=== PATIENT | male | born 1935 | race African-American/Black ===

== ENCOUNTER 2016-10-24 18:24 | Emergency (ER) | payer MEDICARE, MEDICAID ==
[~2016-10-24] VITALS: Ht 167.6 cm; Wt 73.0 kg
[~2016-10-24 18:24] MED LIST: BUME1TAB4 PO; FLUT1DIS IH; IPRA3AMP IH; METO50TA5 PO; MONT10TA21 PO; P20 PO; TRAV2.5D EACHEYE
[2016-10-24] MEDS ORDERED: ATOR40TA70 PO (19:05)
[2016-10-24] MEDS ORDERED: WARF2TAB55 PO (19:05)
[2016-10-24] MEDS ORDERED: PANT40TA4 PO (19:05)
[2016-10-24] MEDS ORDERED: COMBIVENT (19:05)
[2016-10-24] MEDS ORDERED: DILT240C92 PO (19:05)
[2016-10-24] MEDS ORDERED: ALBUTEROL (0.083%) 2.5MG/3ML NEB HHN ONE (20:00)
[2016-10-24] MEDS ORDERED: PREDNISOLONE 15 MG/5 ML ORAL SYRINGE PO ONE (20:00)
[2016-10-24 20:15] LABS: BASOPHILS % 0.7 % (0.0-2.0); EOSINOPHILS % 3.2 % (0.0-5.0); HEMATOCRIT. 38.5 % (42.0-52.0); LYMPHOCYTES % 20.5 % (20.0-50.0); MEAN CORPUSCULAR HEMOGLOBIN 29.5 pg (28.0-32.0); MEAN CORPUSCULAR HGB CONC 33.8 g/dL (31.0-37.0); MEAN CORPUSCULAR VOLUME 87.3 fL (80.0-94.0); MEAN PLATELET VOLUME 8.8 fl (7.4-10.4); NEUTROPHILS % 62.6 % (40.0-76.0); PLATELET 169 x1000/uL (130-400); RED BLOOD CELL COUNT 4.41 mill/uL (4.7-6.1); RED CELL DISTRIBUTION WIDTH 14.7 % (11.6-14.6); WHITE BLOOD COUNT 7.4 x1000/uL (4.5-11.0)
[2016-10-24 20:22] LABS: ALBUMIN 3.7 g/dL (3.4-5.0); CALCIUM 9.4 mg/dL (8.5-10.1); CHLORIDE 108 mEq/L (98-107); INDEX HEMOLYSI 1 (1-3); INDEX ICTERIC 1 (1-4); INDEX LIPEMIC 1 (1-3); INR 2.4; PROTHROMBIN TIME 24.6 sec
[2016-10-24 20:25] LABS: ALANINE AMINOTRANSFERASE 24 IU/L (13-61); ANION GAP 16; CARBON DIOXIDE 23 mEq/L (21-32); LIPASE 131 IU/L (73-393); UREA NITROGEN BLOOD 25 mg/dL (7-21)
[2016-10-24 20:28] LABS: eGFR 55 mL/min (>60)
[2016-10-24 20:30] LABS: NT PRO B-TYPE NATRIURETIC PEP 2499 pg/mL (5-125); TROPONIN I 0.06 ng/mL (0.00-0.04)
[2016-10-25 02:27] VITALS: BP 140/82
== END 2016-10-25 02:29 | disposition home or self-care (01) ==
LOC: ER 20:45
DX: J44.1 Chronic obstructive pulmonary disease with (acute) exacerbation (principal); J45.909 Unspecified asthma, uncomplicated; I11.0 Hypertensive heart disease with heart failure; Z79.01 Long term (current) use of anticoagulants; Z88.0 Allergy status to penicillin; Z88.5 Allergy status to narcotic agent
CPT/HCPCS: 36415; 71010; 80053; 83690; 83880; 84484; 85025; 85610; 85730; 93005; 94640; 99285; J7611

== ENCOUNTER 2016-11-30 14:50 | Inpatient (IN) | payer MEDICARE, MEDICAID ==
[~2016-11-30] VITALS: Ht 167.6 cm; Wt 74.8 kg
[2016-11-30 13:15] VITALS: BP 132/92
[~2016-11-30 14:50] MED LIST changes: +ATOR40TA70 PO; +COMBIGAN EACHEYE; +COMBIVENT; +DILT240C92 PO; +DOCU-138 PO; -METO50TA5 PO; -MONT10TA21 PO; +MONT10TA24 PO; -P20 PO; +PANT40TA4 PO; +WARF2TAB55 PO
[2016-11-30] MEDS ORDERED: IPRATROPIUM/ALBUTEROL 0.5-3(2.5)MG/3ML NEB HHN PRN (16:00)
[2016-11-30] MEDS ORDERED: ACETAMINOPHEN 650MG/20.3ML UDC PO PRN (16:00)
[2016-11-30] MEDS: DOCUSATE SODIUM 100MG CAPSULE PO SCH (16:37)
[2016-11-30] MEDS: MONTELUKAST SODIUM 10MG TABLET PO SCH (16:38)
[2016-11-30] MEDS: BRIMONIDINE 0.2% OPHTH DROPS 5ML EACHEYE SCH (16:48)
[2016-11-30] MEDS: IPRATROPIUM/ALBUTEROL 0.5-3(2.5)MG/3ML NEB HHN SCH ×2 (17:01→19:45)
[2016-11-30 17:15] VITALS: BP 132/92
[2016-11-30] MEDS ORDERED: WARFARIN SODIUM 1MG TABLET PO SCH (18:00)
[2016-11-30 20:00] VITALS: BP 110/78
[2016-11-30] MEDS: LATANOPROST 0.005% OPHTH DROPS 2.5ML EACHEYE SCH (20:43)
[2016-11-30] MEDS: ATORVASTATIN CALCIUM 40MG TABLET PO SCH (20:43)
[2016-11-30] MEDS: TIMOLOL MALEATE 0.5% OPHTH DROPS 5ML EACHEYE SCH (20:44)
[2016-12-01] MEDS: IPRATROPIUM/ALBUTEROL 0.5-3(2.5)MG/3ML NEB HHN SCH ×6 (00:10→21:59)
[2016-12-01] MEDS: FAMOTIDINE 20MG TABLET PO SCH (06:07)
[2016-12-01] MEDS: BRIMONIDINE 0.2% OPHTH DROPS 5ML EACHEYE SCH ×2 (06:07→17:46)
[2016-12-01 06:59] LABS: HEMATOCRIT. 43.1 % (42.0-52.0); HEMOGLOBIN. 14.3 g/dL (14.0-18.0); MEAN CORPUSCULAR HEMOGLOBIN 28.8 pg (28.0-32.0); MEAN CORPUSCULAR VOLUME 86.9 fL (80.0-94.0); MEAN PLATELET VOLUME 9.4 fl (7.4-10.4); PLATELET 156 x1000/uL (130-400); RED BLOOD CELL COUNT 4.96 mill/uL (4.7-6.1); RED CELL DISTRIBUTION WIDTH 14.5 % (11.6-14.6)
[2016-12-01 07:25] LABS: CHLORIDE 109 mEq/L (98-107)
[2016-12-01 07:36] LABS: CARBON DIOXIDE 24 mEq/L (21-32)
[2016-12-01 08:00] VITALS: BP 140/93
[2016-12-01] MEDS ORDERED: PREDNISONE 20MG TABLET PO SCH (09:00)
[2016-12-01] MEDS: DOCUSATE SODIUM 100MG CAPSULE PO SCH ×2 (10:06→17:46)
[2016-12-01] MEDS: PREDNISONE 10MG TABLET PO SCH (10:06)
[2016-12-01] MEDS: TIMOLOL MALEATE 0.5% OPHTH DROPS 5ML EACHEYE SCH ×2 (10:06→21:06)
[2016-12-01] MEDS: MAGNESIUM HYDROXIDE 400MG/5ML 30ML UDC PO PRN (10:07)
[2016-12-01 10:18] LABS: INR 1.8; PROTHROMBIN TIME 19.1 sec
[2016-12-01 11:00] VITALS: BP 143/89
[2016-12-01] MEDS: DILTIAZEM HCL 240MG ER (24HR) PO SCH (11:16)
[2016-12-01 11:44] LABS: PLATELET ESTIMATE NORMAL
[2016-12-01] MEDS: MONTELUKAST SODIUM 10MG TABLET PO SCH (17:46)
[2016-12-01] MEDS ORDERED: WARFARIN SODIUM 2MG TABLET PO NR (18:00)
[2016-12-01 20:32] VITALS: BP 135/79
[2016-12-01] MEDS: ATORVASTATIN CALCIUM 40MG TABLET PO SCH (21:05)
[2016-12-01] MEDS: LATANOPROST 0.005% OPHTH DROPS 2.5ML EACHEYE SCH (21:06)
[2016-12-02] MEDS: IPRATROPIUM/ALBUTEROL 0.5-3(2.5)MG/3ML NEB HHN SCH ×6 (01:15→20:15)
[2016-12-02 06:08] LABS: PROTHROMBIN TIME 21.1 sec
[2016-12-02] MEDS: BRIMONIDINE 0.2% OPHTH DROPS 5ML EACHEYE SCH ×2 (06:46→17:13)
[2016-12-02] MEDS: FAMOTIDINE 20MG TABLET PO SCH (06:46)
[2016-12-02 06:48] LABS: CARBON DIOXIDE 30 mEq/L (21-32); CHLORIDE 104 mEq/L (98-107); HDL CHOLESTEROL 42 mg/dL (40-59); LDL CHOLESTEROL 74 mg/dL (5-100); PHOSPHORUS 2.8 mg/dL (2.5-4.9); TOTAL IRON BINDING CAPACITY 248 ug/dL (250-450)
[2016-12-02 06:57] LABS: BASOPHILS % 0.2 % (0.0-2.0); HEMATOCRIT. 43.3 % (42.0-52.0); HEMOGLOBIN. 14.8 g/dL (14.0-18.0); LYMPHOCYTES % 7.4 % (20.0-50.0); MEAN CORPUSCULAR HEMOGLOBIN 29.6 pg (28.0-32.0); MEAN CORPUSCULAR VOLUME 86.7 fL (80.0-94.0); MEAN PLATELET VOLUME 9.8 fl (7.4-10.4); MONOCYTES % 9.5 % (2.0-8.0); NEUTROPHILS % 82.9 % (40.0-76.0); PLATELET 166 x1000/uL (130-400); RED BLOOD CELL COUNT 4.99 mill/uL (4.7-6.1); RED CELL DISTRIBUTION WIDTH 14.5 % (11.6-14.6)
[2016-12-02 07:27] LABS: FOLIC ACID (FOLATE) SERUM 15.6 ng/mL (>5.38)
[2016-12-02 08:00] VITALS: BP 143/78
[2016-12-02] MEDS: DILTIAZEM HCL 240MG ER (24HR) PO SCH (08:50)
[2016-12-02] MEDS: DOCUSATE SODIUM 100MG CAPSULE PO SCH ×2 (08:50→17:13)
[2016-12-02] MEDS: TIMOLOL MALEATE 0.5% OPHTH DROPS 5ML EACHEYE SCH ×2 (08:50→21:11)
[2016-12-02] MEDS: CYANOCOBALAMIN 1000MCG/ML VIAL IM SCH (08:50)
[2016-12-02] MEDS: PREDNISONE 10MG TABLET PO SCH (08:51)
[2016-12-02 12:56] LABS: PROSTRATE SPECIFIC AG TOTAL 2.01 ng/mL (0.0-4.0)
[2016-12-02] MEDS: MONTELUKAST SODIUM 10MG TABLET PO SCH (17:14)
[2016-12-02] MEDS ORDERED: WARFARIN SODIUM 2MG TABLET PO NR (18:00)
[2016-12-02 20:00] VITALS: BP 126/85
[2016-12-02] MEDS: ATORVASTATIN CALCIUM 40MG TABLET PO SCH (21:10)
[2016-12-02] MEDS: LATANOPROST 0.005% OPHTH DROPS 2.5ML EACHEYE SCH (21:11)
[2016-12-03] MEDS: IPRATROPIUM/ALBUTEROL 0.5-3(2.5)MG/3ML NEB HHN SCH ×6 (00:16→20:26)
[2016-12-03 05:09] LABS: INR 2.2; PROTHROMBIN TIME 22.7 sec
[2016-12-03 05:18] LABS: CARBON DIOXIDE 26 mEq/L (21-32); CHLORIDE 107 mEq/L (98-107)
[2016-12-03] MEDS: BRIMONIDINE 0.2% OPHTH DROPS 5ML EACHEYE SCH ×2 (06:30→17:20)
[2016-12-03] MEDS: FAMOTIDINE 20MG TABLET PO SCH (06:30)
[2016-12-03 08:00] VITALS: BP 120/60
[2016-12-03] MEDS: TIMOLOL MALEATE 0.5% OPHTH DROPS 5ML EACHEYE SCH ×2 (08:38→21:26)
[2016-12-03] MEDS: PREDNISONE 10MG TABLET PO SCH (08:38)
[2016-12-03] MEDS: DOCUSATE SODIUM 100MG CAPSULE PO SCH ×2 (08:38→17:16)
[2016-12-03] MEDS: DILTIAZEM HCL 240MG ER (24HR) PO SCH (08:38)
[2016-12-03] MEDS: CYANOCOBALAMIN 1000MCG/ML VIAL IM SCH (08:39)
[2016-12-03] MEDS: MONTELUKAST SODIUM 10MG TABLET PO SCH (17:16)
[2016-12-03] MEDS ORDERED: WARFARIN SODIUM 1MG TABLET PO NR (18:00)
[2016-12-03] MEDS: MAGNESIUM HYDROXIDE 400MG/5ML 30ML UDC PO PRN (18:01)
[2016-12-03 20:00] VITALS: BP 114/80
[2016-12-03] MEDS: ATORVASTATIN CALCIUM 40MG TABLET PO SCH (21:25)
[2016-12-03] MEDS: LATANOPROST 0.005% OPHTH DROPS 2.5ML EACHEYE SCH (21:26)
[2016-12-04] MEDS: IPRATROPIUM/ALBUTEROL 0.5-3(2.5)MG/3ML NEB HHN SCH ×6 (00:15→21:02)
[2016-12-04] MEDS: FAMOTIDINE 20MG TABLET PO SCH (06:08)
[2016-12-04] MEDS: BRIMONIDINE 0.2% OPHTH DROPS 5ML EACHEYE SCH ×2 (06:08→17:41)
[2016-12-04 06:52] LABS: INR 2.2; PROTHROMBIN TIME 22.7 sec
[2016-12-04 07:25] LABS: CARBON DIOXIDE 25 mEq/L (21-32); CHLORIDE 106 mEq/L (98-107)
[2016-12-04 07:42] LABS: BASOPHILS % 0.3 % (0.0-2.0); EOSINOPHILS % 0.1 % (0.0-5.0); HEMATOCRIT. 42.2 % (42.0-52.0); HEMOGLOBIN. 14.1 g/dL (14.0-18.0); LYMPHOCYTES % 9.4 % (20.0-50.0); MEAN CORPUSCULAR HEMOGLOBIN 29.4 pg (28.0-32.0); MEAN CORPUSCULAR VOLUME 87.9 fL (80.0-94.0); MEAN PLATELET VOLUME 9.4 fl (7.4-10.4); MONOCYTES % 11.4 % (2.0-8.0); NEUTROPHILS % 78.8 % (40.0-76.0); PLATELET 144 x1000/uL (130-400); RED BLOOD CELL COUNT 4.81 mill/uL (4.7-6.1); RED CELL DISTRIBUTION WIDTH 14.2 % (11.6-14.6)
[2016-12-04] MEDS ORDERED: LACTULOSE 20G/30ML UDC PO SCH (07:45)
[2016-12-04 08:00] VITALS: BP 132/82
[2016-12-04] MEDS: LACTULOSE 20G/30ML UDC PO SCH ×3 (09:28→17:40)
[2016-12-04] MEDS: TIMOLOL MALEATE 0.5% OPHTH DROPS 5ML EACHEYE SCH ×2 (09:29→20:35)
[2016-12-04] MEDS: DILTIAZEM HCL 240MG ER (24HR) PO SCH (09:29)
[2016-12-04] MEDS: DOCUSATE SODIUM 100MG CAPSULE PO SCH ×2 (09:29→17:40)
[2016-12-04] MEDS: CYANOCOBALAMIN 1000MCG/ML VIAL IM SCH (09:29)
[2016-12-04] MEDS: PREDNISONE 10MG TABLET PO SCH (09:29)
[2016-12-04] MEDS: MONTELUKAST SODIUM 10MG TABLET PO SCH (17:40)
[2016-12-04] MEDS ORDERED: WARFARIN SODIUM 1MG TABLET PO SCH (18:00)
[2016-12-04 20:00] VITALS: BP 107/57
[2016-12-04] MEDS: LATANOPROST 0.005% OPHTH DROPS 2.5ML EACHEYE SCH (20:35)
[2016-12-04] MEDS: ATORVASTATIN CALCIUM 40MG TABLET PO SCH (20:35)
[2016-12-05] MEDS: IPRATROPIUM/ALBUTEROL 0.5-3(2.5)MG/3ML NEB HHN SCH ×6 (00:46→21:37)
[2016-12-05] MEDS: MAGNESIUM HYDROXIDE 400MG/5ML 30ML UDC PO PRN (02:06)
[2016-12-05] MEDS: BRIMONIDINE 0.2% OPHTH DROPS 5ML EACHEYE SCH ×2 (05:59→16:28)
[2016-12-05] MEDS: FAMOTIDINE 20MG TABLET PO SCH (06:00)
[2016-12-05 06:46] LABS: INR 2.1; PROTHROMBIN TIME 21.5 sec
[2016-12-05 07:03] VITALS: BP 97/58
[2016-12-05] MEDS: DOCUSATE SODIUM 100MG CAPSULE PO SCH ×2 (08:36→16:28)
[2016-12-05] MEDS: PREDNISONE 10MG TABLET PO SCH (08:37)
[2016-12-05] MEDS: TIMOLOL MALEATE 0.5% OPHTH DROPS 5ML EACHEYE SCH ×2 (08:37→21:44)
[2016-12-05] MEDS: CYANOCOBALAMIN 1000MCG/ML VIAL IM SCH (08:37)
[2016-12-05] MEDS: DILTIAZEM HCL 240MG ER (24HR) PO SCH (08:38)
[2016-12-05] MEDS ORDERED: BISACODYL 10MG SUPP PR SCH (08:45)
[2016-12-05] MEDS ORDERED: SORBITOL 70% SOLN 30ML PO SCH (08:45)
[2016-12-05 15:11] LABS: 25-HYDROXY VITAMIN D3 13 ng/mL (.)
[2016-12-05] MEDS: WARFARIN SODIUM 1MG TABLET PO SCH (16:28)
[2016-12-05] MEDS: MONTELUKAST SODIUM 10MG TABLET PO SCH (16:28)
[2016-12-05 20:00] VITALS: BP 120/72
[2016-12-05] MEDS: LATANOPROST 0.005% OPHTH DROPS 2.5ML EACHEYE SCH (21:44)
[2016-12-05] MEDS: ATORVASTATIN CALCIUM 40MG TABLET PO SCH (21:45)
[2016-12-06] MEDS: IPRATROPIUM/ALBUTEROL 0.5-3(2.5)MG/3ML NEB HHN SCH ×6 (01:02→19:50)
[2016-12-06] MEDS: BRIMONIDINE 0.2% OPHTH DROPS 5ML EACHEYE SCH ×3 (06:02→21:40)
[2016-12-06] MEDS: FAMOTIDINE 20MG TABLET PO SCH (06:02)
[2016-12-06 06:23] LABS: HEMATOCRIT. 42.1 % (42.0-52.0); HEMOGLOBIN. 14.2 g/dL (14.0-18.0); MEAN CORPUSCULAR HEMOGLOBIN 29.4 pg (28.0-32.0); MEAN CORPUSCULAR VOLUME 87.1 fL (80.0-94.0); MEAN PLATELET VOLUME 9.5 fl (7.4-10.4); PLATELET 155 x1000/uL (130-400); RED BLOOD CELL COUNT 4.83 mill/uL (4.7-6.1); RED CELL DISTRIBUTION WIDTH 14.7 % (11.6-14.6)
[2016-12-06 07:13] LABS: CARBON DIOXIDE 26 mEq/L (21-32); CHLORIDE 108 mEq/L (98-107)
[2016-12-06 08:00] VITALS: BP 127/89
[2016-12-06] MEDS: PREDNISONE 10MG TABLET PO SCH (09:15)
[2016-12-06] MEDS: TIMOLOL MALEATE 0.5% OPHTH DROPS 5ML EACHEYE SCH ×2 (09:16→21:46)
[2016-12-06] MEDS: DOCUSATE SODIUM 100MG CAPSULE PO SCH ×2 (09:16→17:13)
[2016-12-06] MEDS: DILTIAZEM HCL 240MG ER (24HR) PO SCH (09:17)
[2016-12-06] MEDS: CYANOCOBALAMIN 1000MCG/ML VIAL IM SCH (09:17)
[2016-12-06] MEDS ORDERED: LACTULOSE 20G/30ML UDC PO PRN (09:45)
[2016-12-06 12:53] LABS: PLATELET ESTIMATE NORMAL
[2016-12-06] MEDS ORDERED: ERGOCALCIFEROL 50000UNITS CAPSULE PO SCH (13:00)
[2016-12-06] MEDS: MONTELUKAST SODIUM 10MG TABLET PO SCH (17:13)
[2016-12-06] MEDS: WARFARIN SODIUM 1MG TABLET PO SCH (17:14)
[2016-12-06 20:00] VITALS: BP 126/77
[2016-12-06] MEDS: ATORVASTATIN CALCIUM 40MG TABLET PO SCH (21:39)
[2016-12-06] MEDS: LATANOPROST 0.005% OPHTH DROPS 2.5ML EACHEYE SCH (21:41)
[2016-12-07] MEDS: IPRATROPIUM/ALBUTEROL 0.5-3(2.5)MG/3ML NEB HHN SCH ×6 (01:02→21:08)
[2016-12-07] MEDS: TIMOLOL MALEATE 0.5% OPHTH DROPS 5ML EACHEYE SCH ×2 (06:04→22:02)
[2016-12-07] MEDS: FAMOTIDINE 20MG TABLET PO SCH (06:04)
[2016-12-07 06:28] LABS: HEMATOCRIT. 42.3 % (42.0-52.0); HEMOGLOBIN. 14.3 g/dL (14.0-18.0); MEAN CORPUSCULAR HEMOGLOBIN 29.5 pg (28.0-32.0); MEAN CORPUSCULAR VOLUME 87.3 fL (80.0-94.0); MEAN PLATELET VOLUME 9.5 fl (7.4-10.4); PLATELET 143 x1000/uL (130-400); RED BLOOD CELL COUNT 4.84 mill/uL (4.7-6.1); RED CELL DISTRIBUTION WIDTH 14.3 % (11.6-14.6)
[2016-12-07 06:29] LABS: INR 2.2; PROTHROMBIN TIME 22.4 sec
[2016-12-07 06:55] LABS: CARBON DIOXIDE 25 mEq/L (21-32); CHLORIDE 108 mEq/L (98-107)
[2016-12-07 07:19] LABS: CLARITY URINE CLEAR (CLEAR); COLOR URINE YELLOW (YELLOW); GLUCOSE URINE NEGATIVE (NEGATIVE); KETONES URINE NEGATIVE (NEGATIVE); LEUKOCYTE ESTERASE URINE NEGATIVE (NEGATIVE); NITRITE URINE NEGATIVE (NEGATIVE); OCCULT BLOOD URINE NEGATIVE (NEGATIVE); PROTEIN URINE NEGATIVE (NEGATIVE); SPECIFIC GRAVITY URINE 1.017 (1.005-1.030); UROBILINOGEN URINE 0.2 E.U./dL (0.2-1.0)
[2016-12-07 08:00] VITALS: BP 137/83
[2016-12-07] MEDS: PREDNISONE 10MG TABLET PO SCH (08:49)
[2016-12-07] MEDS: DOCUSATE SODIUM 100MG CAPSULE PO SCH ×2 (08:49→17:21)
[2016-12-07] MEDS: DILTIAZEM HCL 240MG ER (24HR) PO SCH (08:49)
[2016-12-07] MEDS: MONTELUKAST SODIUM 10MG TABLET PO SCH (17:21)
[2016-12-07] MEDS: WARFARIN SODIUM 1MG TABLET PO SCH (17:22)
[2016-12-07] MEDS: BRIMONIDINE 0.2% OPHTH DROPS 5ML EACHEYE SCH (17:23)
[2016-12-07 20:00] VITALS: BP 125/82
[2016-12-07] MEDS: LATANOPROST 0.005% OPHTH DROPS 2.5ML EACHEYE SCH (22:02)
[2016-12-07] MEDS: ATORVASTATIN CALCIUM 40MG TABLET PO SCH (22:02)
[2016-12-07 22:22] LABS: ATYPICAL LYMPHOCYTES 1; PLATELET ESTIMATE NORMAL
[2016-12-08] MEDS: IPRATROPIUM/ALBUTEROL 0.5-3(2.5)MG/3ML NEB HHN SCH ×6 (00:43→19:49)
[2016-12-08] MEDS: BRIMONIDINE 0.2% OPHTH DROPS 5ML EACHEYE SCH ×2 (06:12→16:45)
[2016-12-08] MEDS: FAMOTIDINE 20MG TABLET PO SCH (06:12)
[2016-12-08 08:00] VITALS: BP 127/83
[2016-12-08] MEDS: DOCUSATE SODIUM 100MG CAPSULE PO SCH ×2 (08:06→16:44)
[2016-12-08] MEDS: TIMOLOL MALEATE 0.5% OPHTH DROPS 5ML EACHEYE SCH ×2 (08:06→20:33)
[2016-12-08] MEDS: DILTIAZEM HCL 240MG ER (24HR) PO SCH (08:06)
[2016-12-08] MEDS: PREDNISONE 10MG TABLET PO SCH (08:06)
[2016-12-08] MEDS: MONTELUKAST SODIUM 10MG TABLET PO SCH (16:45)
[2016-12-08] MEDS: WARFARIN SODIUM 1MG TABLET PO SCH (16:45)
[2016-12-08] MEDS: FLUTICASONE/VILANTEROL 200-25 BLST.W.DEV ORI SCH (17:26)
[2016-12-08 20:00] VITALS: BP 114/76
[2016-12-08] MEDS: LATANOPROST 0.005% OPHTH DROPS 2.5ML EACHEYE SCH (20:33)
[2016-12-08] MEDS: ATORVASTATIN CALCIUM 40MG TABLET PO SCH (20:33)
[2016-12-09] MEDS: IPRATROPIUM/ALBUTEROL 0.5-3(2.5)MG/3ML NEB HHN SCH ×3 (00:02→07:19)
[2016-12-09 05:52] LABS: INR 2.2; PROTHROMBIN TIME 22.4 sec
[2016-12-09] MEDS: FAMOTIDINE 20MG TABLET PO SCH (06:03)
[2016-12-09] MEDS: BRIMONIDINE 0.2% OPHTH DROPS 5ML EACHEYE SCH (06:03)
[2016-12-09 08:00] VITALS: BP 148/100
[2016-12-09] MEDS: FLUTICASONE/VILANTEROL 200-25 BLST.W.DEV ORI SCH (08:51)
[2016-12-09] MEDS: TIMOLOL MALEATE 0.5% OPHTH DROPS 5ML EACHEYE SCH (08:51)
[2016-12-09] MEDS: DOCUSATE SODIUM 100MG CAPSULE PO SCH (08:53)
[2016-12-09] MEDS: PREDNISONE 10MG TABLET PO SCH (08:53)
[2016-12-09] MEDS: DILTIAZEM HCL 240MG ER (24HR) PO SCH (09:00)
[2016-12-09] MEDS ORDERED: IPRATROPIUM/ALBUTEROL 0.5-3(2.5)MG/3ML NEB HHN SCH ×2 (10:00→10:15)
[2016-12-09] MEDS ORDERED: METHYLPREDNISOLONE SOD SUCC 40 MG/ML VIAL IV STA (10:04)
[2016-12-09] MEDS ORDERED: ALBUTEROL (0.083%) 2.5MG/3ML NEB ONE (10:21)
[2016-12-09 10:30] LABS: BG BASE EXCESS -7.9 mmol/L (-2.0-2.0); BG CARBOXYHEMOGLOBIN 0.3 % (0.5-1.5); BG DEOXYHEMOGLOBIN 0.3 % (0.0-5.0); BG FRACTION INSPIRED OXYGEN 100; BG HCO3 ACT 22.8 mmol/L (22.0-26.0); BG METHEMOGLOBIN 0.6 % (0.0-1.5); BG OXYGEN SATURATION 99.7 % (92.0-98.5); BG OXYHEMOGLOBIN 98.8 % (94.0-97.0); BG PCO2 69.1 mmHg (35.0-45.0); BG PH 7.136 (7.350-7.450); BG SAMPLE SITE LEFT BRACHIAL; BG TOTAL HEMOGLOBIN 16.6 g/dL (12.0-18.0); BG VENT MODE MASK - NRB
[2016-12-09] MEDS ORDERED: METHYLPREDNISOLONE SOD SUCC 40 MG/ML VIAL IV SCH (16:00)
== END 2016-12-09 10:46 | disposition short-term general hospital (02) | DRG 64 ==
PROVIDERS: ADMIT Physical Medicine & Rehabilitation Spinal Cord Injury Medicine; ATTEND Internal Medicine
DX: I63.9 Cerebral infarction, unspecified (principal); G82.50 Quadriplegia, unspecified; J44.1 Chronic obstructive pulmonary disease with (acute) exacerbation; D64.9 Anemia, unspecified; D72.829 Elevated white blood cell count, unspecified; E78.00 Pure hypercholesterolemia, unspecified; E78.5 Hyperlipidemia, unspecified; G89.29 Other chronic pain; M48.02 Spinal stenosis, cervical region; M48.06 Spinal stenosis, lumbar region; H40.9 Unspecified glaucoma; H54.7 Unspecified visual loss; I11.9 Hypertensive heart disease without heart failure; I48.2 Chronic atrial fibrillation; N40.0 Benign prostatic hyperplasia without lower urinary tract symptoms; R13.11 Dysphagia, oral phase; R29.810 Facial weakness; Z60.2 Problems related to living alone; R26.9 Unspecified abnormalities of gait and mobility; R73.9 Hyperglycemia, unspecified; F32.9 Major depressive disorder, single episode, unspecified; F41.9 Anxiety disorder, unspecified; J06.9 Acute upper respiratory infection, unspecified; J98.01 Acute bronchospasm; M54.5 Low back pain; T38.0X5A Adverse effect of glucocorticoids and synthetic analogues, initial encounter; Z79.01 Long term (current) use of anticoagulants; Z86.73 Personal history of transient ischemic attack (TIA), and cerebral infarction without residual deficits; Z87.891 Personal history of nicotine dependence; Z88.6 Allergy status to analgesic agent; Z88.0 Allergy status to penicillin; Z82.3 Family history of stroke; Z95.810 Presence of automatic (implantable) cardiac defibrillator
CPT/HCPCS: 36415; 36600; 71010; 80048; 80053; 80061; 81003; 82306; 82375; 82607; 82728; 82746; 82805; 82962; 83036; 83540; 83550; 83735; 84100; 84134; 84153; 84443; 84630; 85025; 85610; 87086; 92523; 92610; 93970; 94640; 94664; 97110; 97112; 97116; 97162; 97166; 97530; 97532; 97535; C1893; J2920; J3420; J7512; J7611; J7620